=== PATIENT | male | born 1950 | race Caucasian/White ===

== ENCOUNTER 2020-07-12 13:08 | Outpatient (CLI) | payer BC, SELFPAY ==
--- NOTE | ~2020-07-12 | US_ITS ---
EXAMINATION: US venous doppler UE EXAM DATE: 07/12/2020 13:52 INDICATION: Left arm pain. TECHNIQUE: Multiple grayscale, color flow, Doppler sonographic images of the left upper extremity vei ns obtained by technologist. Compression was performed where able. There is no prior study for tam art. FINDINGS: Left upper extremity: Jugular vein: ------------> Normal. Subclavian vein: --------> Normal. Axillary vein:------------> Normal. Brachial vein:-----------> Normal. Basilic vein: ------------> Normal. Cephalic vein: ----------> Normal. Radial vein: ------------> Normal. Ulnar vein: > Normal. Scanning in the area of clinical concern demonstrates a 2.8 x 1.5 x 1.8 cm nonspecific region with ce ntral anechoic fluid. Could be hematoma. Phlegmon/abscess less likely given that there is no hypervas cularity to the region but please clinically correlate. Fat necrosis would be another possibility if there has been history of trauma. IMPRESSION: 1. Nonspecific heterogeneous region at area of clinical concern. Differential diagnosis includes elton danni, fat necrosis, less likely phlegmon or abscess. Clinical correlation. 2. No deep venous thrombosis of the left upper extremity. Reviewed, dictated and finalized at location B. IMPRESSION: 1. Nonspecific heterogeneous region at area of clinical concern. Differential d iagnosis includes hematoma, fat necrosis, less likely phlegmon or abscess. Clin ical correlation. 2. No deep venous thrombosis of the left upper extremity.
== END 2020-07-12 13:09 | disposition home or self-care (01) ==
LOC: ANHIMG 13:17
PROVIDERS: PCP Family Medicine; Visit Provider Physician Assistant Medical
DX: M79.603 Pain in arm, unspecified (principal); M79.89 Other specified soft tissue disorders
CPT/HCPCS: 93971

== ENCOUNTER 2021-05-31 10:56 | Outpatient (CLI) | payer MEDICARE, BC, SELFPAY | END 2021-05-31 10:57 | disposition home or self-care (01) | PROVIDERS: PCP Family Medicine; Visit Provider Surgery | DX: Z01.818 Encounter for other preprocedural examination (principal); K42.9 Umbilical hernia without obstruction or gangrene; K40.90 Unilateral inguinal hernia, without obstruction or gangrene, not specified as recurrent | CPT/HCPCS: 36415; 86850; 86900; 86901 ==

== ENCOUNTER 2021-06-03 01:19 | Day surgery (SDC) | payer MEDICARE, BC, SELFPAY ==
[2021-05-30 12:48] VITALS: BMI 26.5
--- NOTE | 2021-06-02 14:07 | P.PNAN_ITS ---
Anes - Initial Pre Proc Eval Procedure: Operation Date: 06/03/21 12:00 Proposed Procedures p Totally Extraperitoneal Laparoscopic Left Inguinal Hernia Repair with Mesh - Kiran Hanson MD s Open Umbilical Hernia Repair with Sutures - Kiran Hanson MD Date/Time: 06/02/21 14:07 Surgeon: Kiran Hanson MD Pre Op Diagnosis: umbilical hernia , left inguinal hernia Patient Data Age: 70 Gender: M Height: 1.78 m Weight: 84 kg Allergies Allergy/AdvReac Type Severity Reaction Status Date / Time No Known Allergies Allergy Verified 06/03/21 10:45 Home Medications Medication Instructions Recorded Confirmed Type No Home Medications 05/30/21 06/03/21 History Patient hx anesthesia problems: none Family hx anesthesia problems: none [facility] Past Medical History Medical History (Updated 05/05/21 @ 09:15 by Laura Jameson) H/O hernia repair Family History Family History Father Cerebrovascular accident Mother Family history of malignant neoplasm of breast in first degree relative Cerebrovascular accident Social History Social History (Updated 05/05/21 @ 08:33 by Samina Lopez CMA) Smoking status: Never smoker Alcohol intake: current Drinks per week: 1 Substance use: never Living arrangements: with family Additional living arrangements comments: Gender identity (if verbalized by the patient): Male Spiritual care concerns: No Anes - Eval Final PreProcedure Day of Procedure 06/02/21 14:07 Patient weight: normal Heart: regular rate and rhythm Lungs: clear to auscultation and normal air movement Airway: Mallampati scale class II Neurological: alert and oriented Last oral intake: >/= 8 hours ASA classification: I Emergent: no Anesthetic plan: proceed Anesthesia type and monitoring: general LMA and ETT Informed Consent: The patient's anesthetic plan and its attendant risks and benefits were discussed with the patient/family/POA. Questions were solicited and answers provided to the satisfaction of the patient/family/POA.
[2021-06-03] VITALS (9 sets, daily range): BP systolic 120–151; BP diastolic 71–93; PULSE 66–89; RESP 12–18; TEMP 36.4–36.9; O2SAT 98–100; BMI 23.6
--- NOTE | 2021-06-03 10:45 | SUR.PREOP ---
1045- Notified patient procedure start time delayed. Patient verbalized understanding at this time.
[2021-06-03] MEDS: LACTATED RINGERS 1,000 ML 30 ML IV CONT ×3 (11:00→19:00)
[2021-06-03] MEDS: ACETAMINOPHEN 500 MG TABLET 1000 MG PO (11:17)
[2021-06-03] MEDS: KETOROLAC 15 MG/ML VIAL (*BKC) IV PUSH (11:18)
--- NOTE | 2021-06-03 11:42 | WPDHPUPDATE1 ---
History and Physical Update Update Date/Time: 06/03/21 11:42 History and Physical has been reviewed, including an updated exam of the patient. There are NO changes in the patient's condition. Risks, benefits, and alternatives have been discussed and questions answered. Patient agrees to proceed with procedure.
[2021-06-03] MEDS: ceFAZolin 2 GM/D5W 50 ML 2 GM/50 ML BAG IVPB (14:33)
[2021-06-03] MEDS: BUPIVACAINE/EPINEPHRINE 0.5% 30 ML VIAL INFILTRATE (16:38)
--- NOTE | 2021-06-03 17:26 | W.PM.PROC2 ---
Procedure Note - Detailed Date of Procedure 06/03/21 Pre-op Diagnosis umbilical hernia , left inguinal hernia Post-op Diagnosis other (1. unilateral left Indirect inguinal hernia 2. small umbilical hernia) Procedure Performed 1. laparoscopic totally extraperitoneal left inguinal hernia repair with mesh 2. open umbilical hernia repair with sutures. Surgeon Kiran Hanson MD Labeling Specialist MAGDALENA Estes ,[place] sampler first Anesthesia general Indications bulging and pain on the left groin Findings An indirect inguinal hernia sac lateral to the epigastric vessels and no direct hernia. A small umbilical fascial defect (2 cm) and some incarcerated preperitoneal fat in it. Description of Procedure After appropriate marking of the operative site prior to surgery, the patient was taken to the operating room. After induction of adequate general endotracheal anesthesia by [facility] staff, the patient was carefully prepped and draped in a sterile fashion. A timeout was performed confirming the procedure and site of surgery on the left. Following this, local anesthetic was infiltrated into the umbilical area and a curvilinear transverse incision was made just below the umbilicus. This exposed the lower or more inferior part of the umbilical henia. I then carefully dissected down to the the anterior rectus sheath on the left and then made a 1 cm vertical slit in the fascia just off the midline. The rectus muscle was retracted to left and then just in front of the posterior rectus sheath, a dissecting balloon was passed onto the pubic bone. After placing slight pressure on the right groin area, this was insufflated with 40 pumps, while watching with the 0 degree laparoscope. It appeared that I was in the proper plane. Following this, the dissecting balloon was removed and replaced by a Bowens cannula with a circular 30 cc conforming balloon. Following this, the 0 degree laparoscope was used to carefully place two 5mm [employer] slim trocars, just to the right of midline. One suprapubic and other one group home between the umbilicus and the pubic bone. Tedious dissection then occurred in the preperitoneal space exposing the Armando's ligament, the cord structures, the muscular tissue anteriorly, and the retroperitoneum. This was then able to be dissected back and we could visualize the posterior peritoneum on the back of the indirect hernia sac that was carefully dissected off the cord structures. I then dissected up to the level of the umbilicus and it was ready for mesh placement. After carefully confirming all sites and that the mesh would cover the direct space, I carefully rolled the Large 3D Bard mesh and slid this through the 12 mm trocar at the umbilical level down into the preperitoneal space. This unfurled nicely and sat nicely against the left groin structures. It nicely covered all spaces and it went back nicely into the preperitoneal space along the anterior-superior iliac spine. I took a picture of it, which showed that the mesh will cover the preperitoneal groin well, and had come down to the posterior border of the peritoneum. Once this was accomplished, I took the patient out of Trendelenburg position, rotated the patient back even, and then observed using a dissector through the higher 5 mm trocar to keep the mesh pushed down against the anterior and posterior abdominal wall retroperitoneally. The peritoneum was then allowed to fall on to the mesh as the CO2 gas escaped the preperitoneal space and it held the mesh nicely in place. I then carefully removed each of the 5 mm trocars under direct vision and compressed the CO2 gas out of the preperitoneal space, deflating the 30 cc round balloon and removing the Marie cannula. I was happy with the way the peritoneum laid back on the mesh. I felt this will give the patient a good preperitoneal repair. Following this an O Vicryl figure of eight suture was used to close the anterior rectus sheath on the l
== END 2021-06-03 19:50 | disposition home or self-care (01) ==
PROVIDERS: PCP Family Medicine; Visit Provider Surgery
PROC: (CPT 49650; principal; 2021-06-03 13:30)
PROC: (CPT 49585; 2021-06-03 13:30)
DX: K42.9 Umbilical hernia without obstruction or gangrene (principal); K40.90 Unilateral inguinal hernia, without obstruction or gangrene, not specified as recurrent; Z87.19 Personal history of other diseases of the digestive system
CPT/HCPCS: 49585; 49650; 88302; A9270; C1781; J0690; J1100; J1885; J2250; J2405; J2704; J2710; J3010; J7120

== ENCOUNTER 2021-06-07 11:01 | Emergency (ER) | payer MEDICARE, BC, SELFPAY ==
[2021-06-07 11:07] VITALS: BP 145/96; PULSE 83; RESP 16; TEMP 36.6; O2SAT 98
--- NOTE | 2021-06-07 11:23 | ED.GENADULT ---
HPI - General Adult General Chief complaint: Wound/Laceration Stated complaint: sliced arm Time Seen by Provider: 06/07/21 11:14 Source: patient Mode of arrival: ambulatory Limitations: no limitations History of Present Illness HPI narrative: Patient presents for evaluation of laceration to the left wrist. He was cutting down some plants with a machete blade in his left wrist. Is a moderate amount of pain in the affected area, without descriptive quality or numerical rating. Pain is worse with movement. He is right-hand dominant. No loss of range of motion. No paresthesias. Date of last tetanus unknown. He is not diabetic. No additional complaints or concerns. Related Data Allergies Allergy/AdvReac Type Severity Reaction Status Date / Time No Known Allergies Allergy Verified 06/03/21 10:45 Review of Systems Review of Systems: Narrative: CONSTITUTIONAL: Denies fever, chills, or sweats. EYES: Denies visual changes, redness, or discharge. ENT: Denies rhinorrhea, congestion, sore throat, or otalgia. CARDIOVASCULAR: Denies chest pain, palpitations, or edema. RESPIRATORY: Denies cough or dyspnea. GASTROINTESTINAL: Denies abdominal pain, nausea, vomiting, or diarrhea. GENITOURINARY: Denies dysuria or hematuria. SKIN: Reports laceration to left wrist. Denies rash or itching. MUSCULOSKELETAL: Reports pain in left wrist. Denies back pain. NEUROLOGIC: Denies headache, numbness, dizziness, or weakness. PSYCHIATRIC: Denies anxiety or depression. [facility] Past Medical History Medical History (Updated 06/07/21 @ 13:27 by Gama Avalos, STEPHON, ) H/O hernia repair Left inguinal hernia Surgical History Surgical History H/O umbilical hernia repair History of inguinal hernia repair Family History Family History Father Cerebrovascular accident Mother Family history of malignant neoplasm of breast in first degree relative Cerebrovascular accident Social History Social History Smoking status: Never smoker Alcohol intake: current Drinks per week: 1 Substance use: never Additional living arrangements comments: Gender identity (if verbalized by the patient): Male Spiritual care concerns: No Exam Narrative: Exam Narrative: GENERAL: Well-appearing, well-nourished, and in no acute distress. HEAD: Normocephalic, atraumatic. EYES: PERRLA and EOMI. ENT: Nares clear, no rhinorrhea or epistaxis. Mucous membranes moist. Oropharynx without tonsillar hypertrophy exudate or other lesions. Bilateral TMs pearly thakkar nonbulging NECK: Supple. No adenopathy or masses. No carotid bruits or JVD CHEST: Clear to auscultation. No respiratory distress. No wheezes rales or rhonchi HEART: Regular rate and rhythm. No murmur heard. Normal peripheral pulses. ABDOMEN: Soft, nontender, nondistended, normal active bowel sounds. EXTREMITIES: Normal range of motion. No edema. SKIN: Dry gauze with occlusive dressing noted to umbilical region which is clean and intact. Dry gauze dressing with Coban noted to the left wrist with moderate amount of sanguinous shadowing noted. Dressing was removed for evaluation. Approximately 3 cm laceration to left wrist. Skin is warm, dry, no rash. NEURO: No focal deficits. Alert and oriented x3. PSYCH: Normal mood and affect. Course Course Emergency Course: This is a 70-year-old male who presented with complaints of laceration to left wrist. He has no loss of range of motion. Sensation and distal circulation are intact. He did report some pain in the proximal left forearm. He may have a partial tendon injury. Will refer him to Ortho for outpatient follow-up. Wound was thoroughly irrigated and patient tolerated laceration repair well. Will discharge home with oral Keflex and Olympia. He should return for worsening
[2021-06-07] MEDS: TETANUS,DIPHTHERIA,AC PERTUSSIS ADULT (0.5 ML) BOOSTRIX IM (11:36)
[2021-06-07] MEDS: HYDROcodone/acetaminophen (*CRX) 5-325 MG TABLET 2 TAB PO (11:36)
== END 2021-06-07 13:53 | disposition home or self-care (01) ==
PROVIDERS: Emergency Provider Nurse Practitioner; PCP Family Medicine
DX: S61.512A Laceration without foreign body of left wrist, initial encounter (principal); Z23 Encounter for immunization; W27.8XXA Contact with other nonpowered hand tool, initial encounter
CPT/HCPCS: 90471; 90715; 99283; A9270

== ENCOUNTER 2021-06-17 09:44 | Outpatient (CLI) | payer MEDICARE, BC, SELFPAY ==
[2021-06-17 10:24] LABS: Anion Gap 8 mmol/L (8-16); Blood Urea Nitrogen 15 mg/dL (9-20); Calcium 9.3 mg/dL (8.4-10.2); Carbon Dioxide 28 mmol/L (22-30); Chloride 103 mmol/L (98-107); Cholesterol 189 mg/dL (0-200); Estimated Glomerular Filt Rate > 60; Glucose 95 mg/dL (65-110); HDL Direct 47 mg/dL; Potassium 4.1 mmol/L (3.4-5.0); Sodium 139 mmol/L (137-145); Triglycerides 55 mg/dL (<150)
[2021-06-17 10:34] LABS: LDL Cholesterol Direct 94 mg/dL
[2021-06-17 10:56] LABS: Prostate Specific Antigen 2.5 ng/mL (< OR = 4.0)
== END 2021-06-17 09:45 | disposition home or self-care (01) ==
PROVIDERS: PCP Family Medicine; Visit Provider Physician Assistant Medical
DX: E78.2 Mixed hyperlipidemia (principal); Z13.220 Encounter for screening for lipoid disorders; Z12.5 Encounter for screening for malignant neoplasm of prostate
CPT/HCPCS: 36415; 80048; 80061; 84153; G0103

== ENCOUNTER → 2021-09-25 16:27 | Outpatient (CLI) | payer MEDICARE, BC, SELFPAY ==
--- NOTE | ~2021-09-25 | MR_ITS ---
EXAMINATION: MR wrist LT wo con DATE: 09/25/2021 17:36 INDICATION: Left hand weakness after laceration to the left wrist and 3 months prior. TECHNIQUE: Magnetic resonance imaging (MRI) of the left wrist was performed without intravenous contr ast. Sequences performed include axial PD-weighted FSE and PD-weighted FS FSE, coronal PD-weighted FS FSE and T1-weighted SE, and sagittal PD-weighted FS FSE and PD-weighted FSE. COMPARISON: None FINDINGS: Intrinsic ligaments: The scapholunate and lunotriquetral ligaments are normal. Triangular fibrocartilage complex (TFCC): The triangular fibrocartilage including its foveal and styloid attachments as well as the dorsal and volar radioulnar ligaments are normal. The ulnar collateral ligament, ulnotriquetral ligament and men iscal homologue are normal. The extensor carpi ulnaris tendon sheath is normal. Extensor wrist: Complete transection and 1 cm retraction of both the extensor carpi radialis longus and brevis tendon s with the center of the tear defect located dorsal to the tip of the radial styloid process. The int act extensor pollicis longus tendon crosses over the distal margin of the tear defect. Mild fusiform thickening of the extensor carpi ulnaris tendon at the level of the tip of the ulnar styloid process consistent with mild tendinopathy without discrete tear. Remaining extensor tendons of the wrist are normal. Flexor wrist: The flexor tendons of the wrist are normal. No abnormality in the carpal tunnel with normal median n erve. Guyon's canal: Guyon's canal including the ulnar nerve and artery are normal. Bones/other: Normal marrow signal. No fracture, erosions, avascular necrosis or abnormal marrow replacing process. 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 IMPRESSION: 1. 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 Reviewed, dictated and finalized at location A. IMPRESSION: 1. Complete transection of the extensor carpi radialis longus and brevis tendon s.
== END ==
PROVIDERS: PCP Family Medicine; Visit Provider Orthopaedic Surgery
DX: S61.512A Laceration without foreign body of left wrist, initial encounter (principal); X58.XXXA Exposure to other specified factors, initial encounter
CPT/HCPCS: 73221

== ENCOUNTER → 2022-03-25 16:07 | Outpatient (CLI) | payer MEDICARE, BC, SELFPAY ==
--- NOTE | ~2022-03-25 | XR_ITS ---
EXAMINATION: XR chest 2V Exam Date/Time: 03/25/2022 16:12 CDT CLINICAL HISTORY: R05.8 - Other specified cough Comparison: None available. RESULT: Lines, tubes, and devices: Left clavicular fixation screw. Lungs and pleura: linear left and hazy, subsegmental right infrahilar opacities. Low volume in later al view, with increased opacity in lower lungs ( spine sign ). Cardiomediastinal silhouette: Unremarkable cardiomediastinal silhouette. Other: No acute osseous or upper abdominal finding. IMPRESSION: Lower lung scar/atelectasis or consolidation. Reviewed, dictated and finalized at location K.
== END ==
PROVIDERS: PCP Family Medicine; Visit Provider Nurse Practitioner Family
DX: R05.8 Other specified cough (principal); R91.8 Other nonspecific abnormal finding of lung field
CPT/HCPCS: 71046

== ENCOUNTER 2025-11-13 08:37 | Outpatient (CLI) | payer MEDICARE, SELFPAY ==
--- OUTSIDE RECORDS SUMMARY | 2025-11-13 08:49 | XMS_ITS | Encounter Summary ---
Author Organization [employer] Address [address] [place] [address] Care Team Providers Care Harvest Worker Field Crop Name Role Phone Topher Valdes MD Primary Care Provider [phone] Encounter Details Date Type Department Care Team (Latest Contact Info) Description 05/09/2008 Outpatient Historical [facility] Topher Valdes MD [address] [place] [address] Routine General Medical Examination at a Health Care Facility Social History Tobacco Use Types Packs/Day Years Used Date Smoking Tobacco: Never Alcohol Use Standard Drinks/Week Comments Not Asked 0 (1 standard drink = 0.6 oz pur e alcohol) Sex and Gender Information Value Date Recorded Sex Assigned at Not on file 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
--- OUTSIDE RECORDS SUMMARY | 2025-11-13 08:49 | XMS_ITS | Encounter Summary ---
Author Organization [facility] Address [address] [place] [address] Care Team Providers Care Public Health Name Role Phone Topher Valdes MD Primary Care Provider [phone] Encounter Details Date Type Department Care Team (Late st Contact Info) Description 03/07/2004 Outpatient Historical [facility] Internal Medicine - [place] [address] [place] [address] Servando Arias MD [address] [facility] [place] [address] Social History Tobacco Use Types Packs/Day Years Used Date Smoking Tobacco: Never Assessed Sex and Gender Information Value Date Recorded Sex Assigned at Not on file 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 Gender Identity Not on file Sexual Orientation Not on file documented as of this encounter Last Filed Vital Signs Vital Sign Reading Time Taken Comments Blood Pressure 122/78 03/07/2004 10:45 AM CDT Pulse 78 03/07/2004 10:45 AM CDT Temperature - - Respiratory Rate - - Oxygen Saturation - - Inhaled Oxygen Concentration - - Weight 80.3 kg (177 lb) 03/07/2004 10:45 AM CDT Height - - Body Mass Index - - documented in this encounter Plan of Treatment Not on file documented as of this encounter Visit Diagnoses Not on filedocumented in this encounter Care Teams Public Health Relationship Specialty Start Date End Date Topher Valdes MD [address] [facility] [address] [facility] [address] [facility] [address] PCP - General 06/26/05 documented as of this encounter
--- OUTSIDE RECORDS SUMMARY | 2025-11-13 08:49 | XMS_ITS | Encounter Summary ---
Author Organization [facility] Address [address] [place] [address] Care Team Providers Care Solar Mechanical Engineer Name Role Phone Topher Valdes MD Primary Care Provider [phone] Encounter Details Date Type Department Care Team (Late st Contact Info) Description 11/10/1999 Outpatient Historical [facility] Internal Medicine - [facility] [address] [place] [address] Topher Valdes MD [address] [place] [phone] Social History Tobacco Use Types Packs/Day Years Used Date Smoking Tobacco: Never Assessed Sex and Gender Information Value Date Recorded Sex Assigned at Not on file 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
--- OUTSIDE RECORDS SUMMARY | 2025-11-13 08:49 | XMS_ITS | Encounter Summary ---
Author Organization [facility] Address [address] [place] [address] Care Team Providers Care Towboat Pilot Name Role Phone Topher Valdes MD Primary Care Provider [phone] Encounter Details Date Type Department Care Team (Late st Contact Info) Description 04/21/2007 Outpatient Historical [facility] Internal Medicine - [place] [address] [place] [phone] Topher Valdes MD [address] [place] [phone] Social History Tobacco Use Types Packs/Day Years Used Date Smoking Tobacco: Never Assessed Sex and Gender Information Value Date Recorded Sex Assigned at Not on file 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
--- OUTSIDE RECORDS SUMMARY | 2025-11-13 08:49 | XMS_ITS | Encounter Summary ---
Author Organization [facility] Address [address] [place] [address] Care Team Providers Care Superintendent Plant Protection Name Role Phone Topher Valdes MD Primary Care Provider [phone] Encounter Details Date Type Department Care Team (Late st Contact Info) Description 10/08/2008 Outpatient Historical [facility] Topher Escalera MD [address] [place] [address] Nervousness Social History Tobacco Use Types Packs/Day Years Used Date Smoking Tobacco: Never Alcohol Use Standard Drinks/Week Comments Not Asked 0 (1 standard drink = 0.6 oz pur e alcohol) Sex and Gender Information Value Date Recorded Sex Assigned at Not on file 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
--- OUTSIDE RECORDS SUMMARY | 2025-11-13 08:49 | XMS_ITS | Encounter Summary ---
Author Organization [facility] Address [address] [place] [address] Care Team Providers Care Reservation Clerk Name Role Phone Topher Valdes MD Primary Care Provider [phone] Encounter Details Date Type Department Care Team (Late st Contact Info) Description 03/25/2004 Outpatient Historical [facility] Internal Medicine - [place] [address] [place] [phone] Topher Valdes MD [address] [place] [phone] Social History Tobacco Use Types Packs/Day Years Used Date Smoking Tobacco: Never Assessed Sex and Gender Information Value Date Recorded Sex Assigned at Not on file 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
--- OUTSIDE RECORDS SUMMARY | 2025-11-13 08:49 | XMS_ITS | Encounter Summary ---
Author Organization [employer] Address 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
--- OUTSIDE RECORDS SUMMARY | 2025-11-13 08:49 | XMS_ITS | Encounter Summary ---
Author Organization [facility] Address [address] [place] [address] Care Team Providers Care Poultry Killer Name Role Phone Topher Valdes MD Primary Care Provider [phone] Encounter Details Date Type Department Care Team (Late st Contact Info) Description 10/28/1999 Outpatient Historical [facility] Internal Medicine - [facility] [address] [place] [address] Topehr Valdes MD [address] [place] [address] Social History Tobacco Use Types Packs/Day Years Used Date Smoking Tobacco: Never Assessed Sex and Gender Information Value Date Recorded Sex Assigned at Not on file 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
--- OUTSIDE RECORDS SUMMARY | 2025-11-13 08:49 | XMS_ITS | Patient Health Record ---
Author Organization [facility], Address [address] [place] [address] Care Team Providers Care Olericulturist Name Role Phone Ori Chirinos Primary Care Provider Son Muse Unavailable [phone] Grebing, Carmelo Unavailable Unavailable Allergies No Known Allergies Reason For Referral No Information Social History Section Notes: He is a nonsmoker. He drinks 1 alcoholic drink per week. He denies history of drug or alcohol abuse. Plan Of Treatment No Information Insurance Providers Payer Name Payer Address Payer Phone Subscriber Number Group Number Insured Name Patient Relationship to Insured Coverage Start Date Coverage End Date Medicare [place] [address] [address] [place] [phone] [id number] Demetrio Vela Self - patient is the insured [facility] Secondary [address] [place] [address] [id number] Demetrio Vela Self - patient is the insured Medical (General) History Surgical History Surgery Date(Month/Year) Hernia x2 2020
--- OUTSIDE RECORDS SUMMARY | 2025-11-13 08:49 | XMS_ITS | Encounter Summary ---
Author Organization [facility] Address [address] [place] [address] Care Team Providers Care Lunch Truck Driver Name Role Phone oTpher Valdes MD Primary Care Provider [phone] Encounter Details Date Type Department Care Team (Latest Contact Info) Description 04/21/2007 Outpatient Historical [facility] Primary Care - [address] [place] [address] Topher Valdes MD [address] [place] [address] Routine General Medical Examination at a Health Care Facility (Primary Dx) Social History Tobacco Use Types Packs/Day Years Used Date Smoking Tobacco: Never Assessed Sex and Gender Information Value Date Recorded Sex Assigned at Not on file 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 Gender Identity Not on file Sexual Orientation Not on file documented as of this encounter Plan of Treatment Not on file documented as of this encounter Procedures Procedure Name Priority Date/Time Associated Diagnosis Comments PSA Routine 04/21/2007 11:57 AM CDT LIPID PANEL Routine 04/21/2007 11:57 AM CDT COMPREHENSIVE METABOLIC PANEL Routine 04/21/2007 11:57 AM CDT documented in this encounter Results * (ABNORMAL) COMPREHENSIVE METABOLIC PANEL (04/21/2007 11:57 AM CDT) GLUCOSE 102(H) 65 - 99 mg/dL INTERFACE SYSTEM CREATININE 1.10 0.67 - 1.17 mg/dL INTERFACE SYSTEM CALCIUM 8.9 8.4 - 10.2 mg/dL INTERFACE SYSTEM ALKALINE PHOSPHATASE 73 40 - 129 U/L INTERFACE SYSTEM AST 24 12 - 38 U/L INTERFACE SYSTEM ALT 32 0 - 41 U/L INTERFACE SYSTEM TOTAL PROTEIN 6.8 6.3 - 8.6 g/dL INTERFACE SYSTEM ALBUMIN 4.2 3.4 - 4.8 g/dL INTERFACE SYSTEM BILIRUBIN TOTAL 0.3 0.2 - 1.0 mg/dL INTERFACE SYSTEM BUN 15 6 - 20 mg/dL INTERFACE SYSTEM SODIUM 140 135 - 145 mmol/L INTERFACE SYSTEM POTASSIUM 3.9 3.5 - 4.9 mmol/L INTERFACE SYSTEM CHLORIDE 106 96 - 108 mmol/L INTERFACE SYSTEM CO2 26 22 - 30 mmol/L INTERFACE SYSTEM GFR, >60 >=60 mL/min/1. 7 sq meter INTERFACE SYSTEM GFR >60 >=60 mL/min/1. 7 sq meter INTERFACE SYSTEM Comment: Estimated GFR rate interpretative information for both Americans and non- Americans is available on the [facility] Intranet at: http://TEXbasedaysoft/Map Decisions/sjmmclab.B-hive [employer] Select: Lab Policies and Procedures Select: Reference Ranges - GFR 04/21/2007 11:5 7 AM CDT us History Conversion CHEMISTRY ORDERABLES Edited INTERFACE SYSTEM Refer to clinic/hospital department * (ABNORMAL) LIPID PANEL (04/21/2007 11:57 AM CDT) CHOLESTEROL 146 100 - 199 mg/dL INTERFACE SYSTEM TRIGLYCERIDE 84 10 - 149 mg/dL INTERFACE SYSTEM HDL 38(L) 40 - 59 mg/dL INTERFACE SYSTEM CHOL/HDL RATIO 3.8 2.0 - 5.0 INTER FACE SYSTEM LDL CALCULATED 91 <=99 mg/dL INTERFACE SYSTEM LIPID PANEL COMMENT See Below INTERFACE SYSTEM Comment: The adult ATP and pediatric NCEP classifications for lipids are available on the [facility] [employer] at: http://TEXbasedaysoft/Map Decisions/sjmmclab.B-hive Networks Select: Lab Policies and Procedures Select: Reference Ranges - Lipids 04/21/2007 11:5 7 AM CDT us History Conversion CHEMISTRY ORDERABLES Edited INTERFACE SYSTEM Refer to clinic/hospital department * PSA (04/21/2007 11:57 AM CDT) PSA 0.7 0.0 - 4.0 ng/mL INTERFACE SYSTEM Comment:Performed on MedPro E170 System 04/21/2007 11:5 7 AM CDT us History Conversion CHEMISTRY ORDERABLES Edited Performing Organization Address City/[facility] Co de Phone Number INTERFACE SYSTEM Refer to clinic/hospital department documented in this encounter Visit Diagnoses Diagnosis Routine general medical examination at a health care facility- Primary documented in this encounter Care Teams Lunch Truck Driver Relationship Specialty Start Date End Date Topher Valdes MD [address] [place] [address] PCP - General 06/26/05 documented as of this encounter
--- OUTSIDE RECORDS SUMMARY | 2025-11-13 08:49 | XMS_ITS | Encounter Summary ---
Author Organization [facility] Address 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 LAST VISIT: 12-18-05 PCP: dee WHO CALLED: Patient called. ALTERNATIVE PHONE NUMBER: [phone] CURRENT ALLERGY LIST: [facility] NUMBER: [phone] SECTION 1: REQUESTED ACTION prem 02/26/06 at 09:05 am: MEDICATION REQUEST: MEDICATION REQUEST: Pre-Authorization is required for. MEDICATIONS: CRESTOR ORAL TABLET 10 MG, 1 Every Day, 30 Dispensed, 11 Fills, 30 Duration/Days Supply, status: NEW PRESCRIPTION, 05/29/2005. [phone] pt has to try and fail lipitor and zocor first; don't see in med list. Please advise. DOCTOR`S RESPONSE: stan 03/05/06 at 05:07 pm MEDICATIONS: ZOCOR ORAL TABLET 40 MG, 1 Every Day, 30 Dispensed, 11 Fills, status: NEW PRESCRIPTION, 02/26/2006.needs appt in 4 to 6 weeks to follow up CRESTOR ORAL TABLET 10 MG, 1 Every Day, 30 Dispensed, 11 Fills, 30 Duration/Days Supply, status: DISCONTINUED, 02/26/2006. let him know his insurance not us is making us stop this and try something different FINAL ACTION: forndflor 03/05/06 at 05:12 pm Left message on patient`s recorder or with a family member 03/05/2006 at 05:12 pm. at both #'s. df SECTION 2: FINAL ACTION: janniea 03/08/06 at 09:25 am Spoke with patient 03/09/06 at 08:41 am. Left message on patient`s recorder or with a family member 03/08/2006 at 09:25 am. cc Called pharmacy at 03/09/06 at 08:41 am. Electronically Signed by: Christine Morales on Thursday, March 09, 2006 documented in this encounter Plan of Treatment Not on file documented as of this encounter Visit Diagnoses Not on filedocumented in this encounter Care Teams Track Repair Worker Relationship Specialty Start Date End Date Topher Valdes MD [address] [place] [address] PCP - General 06/26/05 documented as of this encounter
--- OUTSIDE RECORDS SUMMARY | 2025-11-13 08:49 | XMS_ITS | Encounter Summary ---
Author Organization [facility] Address [address] [place] [address] Care Team Providers Care Heavy Media Operator Name Role Phone Topher Valdes MD Primary Care Provider [phone] Encounter Details Date Type Department Care Team (Late st Contact Info) Description 08/04/1999 Outpatient Historical [facility] Internal Medicine - [facility] [address] [place] [address] Topher Valdes MD [address] [place] [address] Social History Tobacco Use Types Packs/Day Years Used Date Smoking Tobacco: Never Assessed Sex and Gender Information Value Date Recorded Sex Assigned at Not on file 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
--- OUTSIDE RECORDS SUMMARY | 2025-11-13 08:49 | XMS_ITS | Encounter Summary ---
Author Organization [facility] Address [address] [place] [address] Care Team Providers Care Art Museum Docent Name Role Phone Topher Valdes MD Primary Care Provider [phone] Encounter Details Date Type Department Care Team (Late st Contact Info) Description 05/26/2005 Outpatient Historical [facility] Internal Medicine - [place] [address] [place] [address] Topher Valdes MD [address] [place] [address] Social History Tobacco Use Types Packs/Day Years Used Date Smoking Tobacco: Never Assessed Sex and Gender Information Value Date Recorded Sex Assigned at Not on file 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
--- OUTSIDE RECORDS SUMMARY | 2025-11-13 08:49 | XMS_ITS | Encounter Summary ---
Author Organization [facility] Address [address] [place] [address] Care Team Providers Care Cross Cut Sawyer Name Role Phone Topher Valdes MD Primary Care Provider [phone] Encounter Details Date Type Department Care Team (Late st Contact Info) Description 07/22/2000 Outpatient Historical [facility] Internal Medicine - [place] [address] [address] Topher Valdes MD [address] [place] [address] Social History Tobacco Use Types Packs/Day Years Used Date Smoking Tobacco: Never Assessed Sex and Gender Information Value Date Recorded Sex Assigned at Not on file 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
--- OUTSIDE RECORDS SUMMARY | 2025-11-13 08:49 | XMS_ITS | Encounter Summary ---
Author Organization [facility] Address [address] [place] [address] Care Team Providers Care Cleaners Name Role Phone Topher Valdes MD Primary Care Provider [phone] Encounter Details Date Type Department Care Team (Late st Contact Info) Description 05/26/2005 Outpatient Historical [facility] Internal Medicine - [place] [address] [place] [address] Topher Valdes MD [address] [place] [address] Social History Tobacco Use Types Packs/Day Years Used Date Smoking Tobacco: Never Assessed Sex and Gender Information Value Date Recorded Sex Assigned at Not on file 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
--- OUTSIDE RECORDS SUMMARY | 2025-11-13 08:49 | XMS_ITS | Encounter Summary ---
Author Organization [facility] Address [address] [place] [address] Care Team Providers Care Solar Site Assessment Specialist Name Role Phone Tohper Valdes MD Primary Care Provider [phone] Encounter Details Date Type Department Care Team (Late st Contact Info) Description 04/21/[address] 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
--- OUTSIDE RECORDS SUMMARY | 2025-11-13 08:49 | XMS_ITS | Encounter Summary ---
Author Organization [facility] Address [address] [place] [address] Care Team Providers Care Feed Mill Manager Name Role Phone Topher Valdes MD Primary Care Provider [phone] Encounter Details Date Type Department Care Team (Late st Contact Info) Description 11/26/[address] 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
--- OUTSIDE RECORDS SUMMARY | 2025-11-13 08:49 | XMS_ITS | Encounter Summary ---
Author Organization [facility] Address [address] [place] [address] Care Team Providers Care Supervisor Files Name Role Phone Topher Valdes MD Primary Care Provider [phone] Encounter Details Date Type Department Care Team (Late st Contact Info) Description 12/18/2005 Outpatient Historical [facility] Internal Medicine - [place] 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
--- OUTSIDE RECORDS SUMMARY | 2025-11-13 08:49 | XMS_ITS | Clinical Summary ---
Author Organization [facility] Address [address] [place] [address] Phone Care Team Providers Care Truck Body Builder Apprentice Name Role Phone Topher Valdes MD Primary Care Provider [phone] Allergies Active Allergy Reactions Criticality Noted Date Comments No Known Allergies 03/07/2004 Medications escitalopram (LEXAPRO) 10 mg Oral Tab Take 1 Tab by mouth daily. 30 Tab 6 09/25/2008 Active Tadalafil (CIALIS) 10 mg Oral TabIndications:E rectile dysfunction Take 10 mg by mouth 1 time daily as needed for Other (See Comment). 10 Tab 6 03/14/2009 Active simvastatin (ZOCOR) 40 mg Oral Tab Take 1 Tab by mouth daily. 30 Tab 6 05/20/2009 Active Active Problems Problem Noted Date Diagnosed Date Other and unspecified hyperlipidemia 03/25/2004 Routine general medical exam ination at a health care facility 03/25/2004 Resolved Problems Problem Noted Date Diagnosed Date Resolved Date Special screening for malign ant neoplasms, colon 03/25/2004 05/08/2008 Cervicalgia 03/07/2004 05/08/2008 Social History Tobacco Use Types Packs/Day Years Used Date Smoking Tobacco: Never Alcohol Use Standard Drinks/Week Comments Yes 0 (1 standard drink = 0.6 oz pur e alcohol) Sex and Gender Information Value Date Recorded Sex Assigned at Not on file 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 Male 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 DIRECTOR HAIR Gender Identity Not on file Sexual Orientation Not on file Last Filed Vital Signs Vital Sign Reading Time Taken Comments Blood Pressure 112/70 03/05/2009 10:26 AM CDT Pulse 90 03/05/2009 10:26 AM CDT Temperature - - Respiratory Rate - - Oxygen Saturation - - Inhaled Oxygen Concentration - - Weight 79.8 kg (176 lb) 03/05/2009 10:26 AM CDT Height - - Body Mass Index - - Plan of Treatment Health Maintenance Due Date Last Done Comments DTAP/TDAP/TD VACCINES (1 - Tdap) 1971 FIT-DNA Q 3 years 1997 Flex Sig/CT Colonography Q 5 years 1997 FIT/FOBT Q 1 year 07/22/2001 07/22/2000, 08/04/1999 PNEUMOCOCCAL VACCINE 50+ YEA RS (1 of 1 - PCV) 2002 ZOSTER VACCINE (1 of 2) 2002 COLORECTAL SCREENING 06/26/2015 06/26/2005 (Previously completed) Colorectal Cancer Screening 06/26/2015 Preventative Visit- Commercial 11/22/2024 0 05/08/2008, 04/21/2007, 05/26/2005, Additional history exists INFLUENZA VACCINE (#1) 2025 RSV VACCINE (60+ or ) (1 - 1-dose 75+ series) 2027 Insurance [facility] BLUE ACCESS CHOICE Care Teams Truck Body Builder Apprentice Relationship Specialty Start Date End Date Topher Valdes MD [address] [place] [address] PCP - General 06/26/05
--- OUTSIDE RECORDS SUMMARY | 2025-11-13 08:49 | XMS_ITS | Encounter Summary ---
Author Organization [facility] Address [address] [place] [address] Care Team Providers Care Hot Cell Technician Name Role Phone Topher Valdes MD Primary Care Provider [phone] Encounter Details Date Type Department Care Team (Late st Contact Info) Description 12/18/2005 Outpatient Historical [facility] Internal Medicine - [place] 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
--- OUTSIDE RECORDS SUMMARY | 2025-11-13 08:49 | XMS_ITS | Encounter Summary ---
Author Organization [facility] Address [address] [place] [address] Care Team Providers Care Civil Engineering Assistant Name Role Phone Topher Valdes MD Primary Care Provider [phone] Encounter Details Date Type Department Care Team (Late st Contact Info) Description 03/25/2004 Outpatient Historical [facility] Internal Medicine - [place] [address] [place] [address] Topher Valdes MD [address] [place] [address] Social History Tobacco Use Types Packs/Day Years Used Date Smoking Tobacco: Never Assessed Sex and Gender Information Value Date Recorded Sex Assigned at Not on file 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
--- OUTSIDE RECORDS SUMMARY | 2025-11-13 08:50 | XMS_ITS | Encounter Summary ---
Author Organization [facility] Address [address] [place] [address] Care Team Providers Care Research Professor Name Role Phone Topher Valdes MD Primary Care Provider [phone] Encounter Details Date Type Department Care Team (Late st Contact Info) Description 07/19/2001 Outpatient Historical [facility] Internal Medicine - [place] [address] [place] [phone] Topher Valdes MD [address] [place] [phone] Social History Tobacco Use Types Packs/Day Years Used Date Smoking Tobacco: Never Assessed Sex and Gender Information Value Date Recorded Sex Assigned at Not on file 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
--- OUTSIDE RECORDS SUMMARY | 2025-11-13 08:50 | XMS_ITS | Encounter Summary ---
Author Organization [facility] Address [address] [place] [address] Care Team Providers Care Barrel Rib Matting Machine Operator Name Role Phone Topher Valdes MD Primary Care Provider [phone] Encounter Details Date Type Department Care Team (Late st Contact Info) Description 04/21/2007 Orders Only [facility] Internal Medicine - [place] [address] [place] [address] Topher Valdes MD [address] [place] [address] Social History Tobacco Use Types Packs/Day Years Used Date Smoking Tobacco: Never Assessed Sex and Gender Information Value Date Recorded Sex Assigned at Not on file 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 MEDICATIONS: Medication list current. CHIEF COMPLAINT Seen for a preventive examination. Patient here for follow up hyperlipidemia. HISTORY: HISTORY: 272.4-HYPERLIPIDEMIA The patient`s weight is the same. The patient is compliant with the low saturated fat diet. The patient`s exercise is the same. V70.0-ROUTINE GENERAL MEDICAL EXAMINATION CURRENT MEDICATION LIST: ZOCOR ORAL TABLET 40 MG, 1 Every Day CURRENT ALLERGY LIST: NKDA ROS: GENERAL: Normal activity and energy level, no change in appetite. No major weight gain or loss. No malaise, chills, fever, diaphoresis.. ENT: No hearing loss, epistaxis, hoarseness or dysphagia. No sinus congestion.. ENDOCRINE: No heat or cold intolerance, no excessive thirst.. CARDIAC: No chest pain, palpitations, orthopnea, dyspnea on exertion, or paroxysmal nocturnal dyspnea.. RESPIRATORY: No dyspnea, cough, hemoptysis or wheezing.. : No dysuria or hematuria.. GI: No abdominal pain, nausea, vomiting, diarrhea, constipation, melena, or hematochezia.. PHYSICAL EXAMINATION: CONSTITUTIONAL: GENERAL APPEARANCE: Healthy appearing patient in no distress. NECK/THYROID: Trachea midline. No thyroid enlargement, tenderness, or mass. No supraclavicular or cervical adenopathy. RESPIRATORY: Clear to auscultation and percussion. Normal respiratory effort. CARDIOVASCULAR: CARDIAC: Regular rhythm. No murmurs, rubs, or gallops. ARTERIAL: Aortic pulses of normal amplitude with no bruits. EDEMA/VARICOSITIES OF EXTREMITIES: No edema or varicosities. LYMPHATICS: No lymphadenopathy in the neck, axillae, or groin. GASTROINTESTINAL: ABDOMEN: Soft, non-tender, without masses. Bowel sounds active. LIVER/SPLEEN/KIDNEY: No hepatosplenomegaly, tenderness or nodularity. Kidneys not palpable. GENITOURINARY: PROSTATE: Symmetrical and smooth with no nodularity or tenderness. ASSESSMENT/PLAN: 272.4-HYPERLIPIDEMIA ASSESSMENT: Will not change medication, continue to monitor for complications. A low cholesterol diet was encouraged. Regular exercise was encouraged. V70.0-ROUTINE GENERAL MEDICAL EXAMINATION ASSESSMENT: The patient is doing well and no distinct problems were identified on exam. LAB ORDERS: Order number: [id number] Test Ordered: COMPREHENSIVE METABOLIC PANEL & GFR 1112 Order number: [id number] Test Ordered: PSA, TOTAL 1002 Order number: [id number] Test Ordered: LIPID PANEL 1078 PATIENT EDUCATION: The benefits of exercise were reviewed at length with the patient. V76.51-SCREEN FOR CA OF COLON ASSESSMENT: No complications noted from the medication presently being used. HEALTH MAINTENANCE: LAST DATE PSA DONE: . DISCUSSED SMOKING: NONE. LAST TD: DATE UNKNOWN DIET AND EXERCISE DISCUSSED: YES. ( ACTIVE LIFE STYLE) LAST DATE COLONOSCOPY: . DIABETIC EYE EXAM: . LAST FLU VACCINE:NOT DONE RETURN VISIT : Patient instructed to return in 1 year. Electronically Signed by: Topher Valdes MD on , April 21, 2007 documented in this encounter Plan of Treatment Not on file documented as of this encounter Visit Diagnoses Not on filedocumented in this encounter Care Teams Barrel Rib Matting Machine Operator Relationship Specialty Start Date End Date Topher Valdes MD [address] [place] [id number] PCP - General 06/26/05 documented as of this encounter
--- OUTSIDE RECORDS SUMMARY | 2025-11-13 08:50 | XMS_ITS | Encounter Summary ---
Author Organization [employer] Address [address] [place] [address] Care Team Providers Care Leather Sprayer Name Role Phone Topher Valdes MD Primary Care Provider [phone] Encounter Details Date Type Department Care Team (Late st Contact Info) Description 02/14/2004 Outpatient [facility] [address] 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
--- OUTSIDE RECORDS SUMMARY | 2025-11-13 08:50 | XMS_ITS | Encounter Summary ---
Author Organization [employer] Address [address] [place] [address] Care Team Providers Care Tenderizer Tender Name Role Phone Topher Valdes MD Primary Care Provider [phone] Encounter Details Date Type Department Care Team (Late st Contact Info) Description 02/15/2004 Outpatient [facility] [address] 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
[2025-11-13 10:11] LABS: Hematocrit 42.7 % (42.0-52.0); Hemoglobin 13.8 g/dL (14.0-18.0); Immature Granulocyte Percent A 0.4 % (0-0.5); Lymphocytes Absolute Auto 1.26 K/mm3 (0.9-3.2); Mean Corpuscular HGB Conc 32.3 g/dl (32-36); Mean Corpuscular Hemoglobin 30.1 pg (26-34); Mean Corpuscular Volume 93.0 fl (80-100); Nucleated Red Blood Cells Absolute Auto 0.000 K/mm3 (0.0-0.012); Nucleated Red Blood Cells Perc 0.0 % (0.0-0.2); Platelet Count Result 150 k/mm3 (150-375); Red Blood Count 4.59 M/mm3 (4.6-6.20); White Blood Count 4.9 K/mm3 (4.5-10.0)
[2025-11-13 10:36] LABS: Alanine Aminotransferase 20 U/L (6-50); Albumin Level 3.9 g/dL (3.5-5.1); Alkaline Phosphatase 74 U/L (38-126); Anion Gap 6 mmol/L (4-12); Aspartate Amino Transferase 27 U/L (17-59); Bilirubin,Total 0.6 mg/dL (0.2-1.3); Blood Urea Nitrogen 22 mg/dL (9-20); Calcium 9.2 mg/dL (8.4-10.2); Carbon Dioxide 27 mmol/L (22-30); Chloride 107 mmol/L (98-107); Cholesterol 174 mg/dL (0-200); Estimated Glomerular Filt Rate > 60; Glucose 94 mg/dL (65-110); HDL Direct 50 mg/dL; Potassium 3.9 mmol/L (3.4-5.0); Sodium 140 mmol/L (137-145); Total Protein 6.8 g/dL (6.3-8.2); Triglycerides 56 mg/dL (<150)
[2025-11-13 11:11] LABS: Prostate Specific Antigen 6.1 ng/mL (< OR = 4.0); Thyroid Stimulating Hormone 1.800 uIU/mL (0.465-4.680)
== END 2025-11-13 08:38 | disposition home or self-care (01) ==
PROVIDERS: PCP Family Medicine; Visit Provider Nurse Practitioner Adult Health
DX: R93.89 Abnormal findings on diagnostic imaging of other specified body structures (principal); E78.2 Mixed hyperlipidemia; Z68.23 Body mass index [BMI] 23.0-23.9, adult; Z12.5 Encounter for screening for malignant neoplasm of prostate; Z13.29 Encounter for screening for other suspected endocrine disorder
CPT/HCPCS: 36415; 80053; 80061; 84153; 84443; 85025; G0103